=== PATIENT | female | born 1995 | race African-American/Black ===

== ENCOUNTER 2022-07-29 10:20 | Emergency (ER) | payer MEDICAID ==
[~2022-07-29] VITALS: Ht 170.2 cm; Wt 90.0 kg
[2022-07-29 10:34] VITALS: BP 121/79
[2022-07-29] MEDS ORDERED: METR-167 MT (12:26)
[2022-07-29] MEDS ORDERED: DOXY100C5 PO (12:26)
[2022-07-29] MEDS ORDERED: LIDOCAINE HCL 1% 20ML VIAL (Pyxis) INJ MC SCH (12:30)
[2022-07-29] MEDS ORDERED: CEFTRIAXONE SODIUM 500 MG/VIAL IM ONE (12:30)
[2022-07-29] MEDS ORDERED: LIDOCAINE HCL 1% 20ML VIAL (Pyxis) INJ MC ONE (12:30)
[2022-07-29 12:54] LABS: CLARITY URINE CLEAR (CLEAR); COLOR URINE YELLOW (YELLOW); KETONES URINE NEGATIVE (NEGATIVE); LEUKOCYTE ESTERASE URINE NEGATIVE (NEGATIVE); NITRITE URINE NEGATIVE (NEGATIVE); OCCULT BLOOD URINE NEGATIVE (NEGATIVE); PH URINE 5.5 (4.5-8.0); PROTEIN URINE NEGATIVE (NEGATIVE); SPECIFIC GRAVITY URINE 1.021 (1.005-1.030); UROBILINOGEN URINE 0.2 E.U./dL (0.2-1.0)
== END 2022-07-29 13:03 | disposition home or self-care (01) ==
LOC: ER 10:20
DX: N76.0 Acute vaginitis (principal); Z20.2 Contact with and (suspected) exposure to infections with a predominantly sexual mode of transmission
CPT/HCPCS: 81003; 81025; 96372; 99283; J0696; J3490

== ENCOUNTER 2024-03-16 16:59 | Emergency (ER) | payer MEDICAID ==
[~2024-03-16] VITALS: Ht 172.7 cm; Wt 90.0 kg
[~2024-03-16 16:59] MED LIST: DOXY100C5 PO; METR-167 MT
[2024-03-16 17:07] VITALS: TEMP 98.2; O2SAT 100
[2024-03-16 17:37] LABS: BASOPHILS % 0.8 % (0.0-2.0); EOSINOPHILS % 2.8 % (0.0-5.0); HEMATOCRIT. 33.9 % (36.0-48.0); HEMOGLOBIN. 11.9 g/dL (12.0-16.0); LYMPHOCYTES % 26.8 % (20.0-50.0); MEAN CORPUSCULAR HEMOGLOBIN 30.3 pg (28.0-32.0); MEAN CORPUSCULAR HGB CONC 35.1 g/dL (31.0-37.0); MEAN CORPUSCULAR VOLUME 86.4 fL (81.0-99.0); MEAN PLATELET VOLUME 10.2 fl (7.4-10.4); NEUTROPHILS % 61.6 % (40.0-76.0); PLATELET 226 x1000/uL (130-400); RED BLOOD CELL COUNT 3.92 mill/uL (4.2-5.4); RED CELL DISTRIBUTION WIDTH 14.6 % (11.6-14.6); WHITE BLOOD COUNT 10.1 x1000/uL (4.5-11.0)
[2024-03-16 17:43] LABS: CHLORIDE 106 mEq/L (98-107); SODIUM 136 mEq/L (136-145)
[2024-03-16 17:44] LABS: CARBON DIOXIDE 24 mEq/L (21-32)
[2024-03-16 17:45] LABS: CALCIUM 9.6 mg/dL (8.7-10.4)
[2024-03-16 17:50] LABS: CREATININE 0.6 mg/dL (0.6-1.0); GLUCOSE 91 mg/dL (70-105); UREA NITROGEN BLOOD 7 mg/dL (9-23)
[2024-03-16 17:58] LABS: CLARITY URINE CLEAR (CLEAR); COLOR URINE YELLOW (YELLOW); GLUCOSE URINE NEGATIVE (NEGATIVE); KETONES URINE NEGATIVE (NEGATIVE); LEUKOCYTE ESTERASE URINE NEGATIVE (NEGATIVE); NITRITE URINE NEGATIVE (NEGATIVE); OCCULT BLOOD URINE NEGATIVE (NEGATIVE); PH URINE 7.5 (4.5-8.0); PROTEIN URINE NEGATIVE (NEGATIVE); SPECIFIC GRAVITY URINE 1.019 (1.005-1.030); UROBILINOGEN URINE 0.2 E.U./dL (0.2-1.0)
[2024-03-16 18:06] LABS: B-HCG QUANTITATIVE 10938 mIU/mL (<3)
[2024-03-16 23:13] VITALS: BP 121/88; PULSE 90; RESP 20
== END 2024-03-16 23:14 | disposition home or self-care (01) ==
LOC: ER 16:59
DX: O20.0 Threatened abortion (principal); Z3A.20 20 weeks gestation of pregnancy
CPT/HCPCS: 36415; 76805; 80048; 81003; 84702; 85025; 86850; 86900; 99284

== ENCOUNTER 2024-06-09 23:04 | Emergency (ER) | payer BC, MEDICAID ==
[~2024-06-09] VITALS: Ht 170.2 cm; Wt 102.0 kg
[2024-06-09 23:07] VITALS: O2SAT 99
[2024-06-10] MEDS ORDERED: ACETAMINOPHEN 325MG TABLET PO ONE (00:30)
[2024-06-10] MEDS: ACETAMINOPHEN 325MG TABLET PO NR (01:16)
[2024-06-10 02:30] LABS: CLARITY URINE CLOUDY (CLEAR); COLOR URINE YELLOW (YELLOW); GLUCOSE URINE NEGATIVE (NEGATIVE); KETONES URINE TRACE (NEGATIVE); LEUKOCYTE ESTERASE URINE TRACE (NEGATIVE); NITRITE URINE NEGATIVE (NEGATIVE); OCCULT BLOOD URINE NEGATIVE (NEGATIVE); PROTEIN URINE TRACE (NEGATIVE); SPECIFIC GRAVITY URINE 1.031 (1.005-1.030)
[2024-06-10] MEDS ORDERED: MINE50OI TP (02:38)
[2024-06-10 02:49] VITALS: BP 128/72; PULSE 78; RESP 18; TEMP 98.6
[2024-06-10 03:52] LABS: SQUAMOUS EPITHELIAL CELL URINE 2+ /lpf (RARE/1+)
[2024-06-10 03:53] LABS: RBC URINE 0-2 /hpf (0-2); WBC URINE 0-2 /hpf (0-2)
[2024-06-10 03:55] LABS: BACTERIA URINE 2+
== END 2024-06-10 02:51 | disposition home or self-care (01) ==
LOC: ER 23:19
DX: N90.89 Other specified noninflammatory disorders of vulva and perineum (principal)
CPT/HCPCS: 81003; 99283

== ENCOUNTER 2024-10-10 10:50 | Emergency (ER) | payer MEDICAID ==
[~2024-10-10] VITALS: Ht 172.7 cm; Wt 105.0 kg
[~2024-10-10 10:50] MED LIST changes: +MINE50OI TP
[2024-10-10 10:54] VITALS: BP 101/67; RESP 18; TEMP 98.6; O2SAT 100
[2024-10-10 10:58] VITALS: PULSE 99; O2SAT 99
[2024-10-10] MEDS ORDERED: IBUPROFEN 400MG TABLET PO ONE (11:30)
[2024-10-10] MEDS ORDERED: BACITRACIN ZINC OINT UDPKT TOP ONE (12:30)
[2024-10-10] MEDS ORDERED: LIDOCAINE HCL/PF 1% 10 MG/ML 5ML VIAL INFIL ONE (12:30)
[2024-10-10] MEDS ORDERED: IBUPROFEN 400MG TABLET PO NR (13:30)
[2024-10-10] MEDS ORDERED: AMOX1TAB16 MT (14:13)
== END 2024-10-10 15:13 | disposition home or self-care (01) ==
LOC: ER 11:00
DX: L03.012 Cellulitis of left finger (principal); M79.89 Other specified soft tissue disorders
CPT/HCPCS: 73130; 26010; 99283; J3490; Z7610; 10060